=== PATIENT | male | born 2000 | race Caucasian/White ===

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

== ENCOUNTER 2021-03-15 00:03 | Emergency (ER) | payer MEDICAID ==
[2021-03-15] MEDS ORDERED: Sodium Chloride 0.9% 1,000 ML IV ONE (00:26)
[2021-03-15] MEDS ORDERED: Ondansetron 4 MG/2 ML SDV IVPUSH ONE (00:27)
[2021-03-15] MEDS ORDERED: Ketorolac 30 MG/ML SDV IVPUSH ONE (00:27)
[2021-03-15] MEDS ORDERED: predniSONE 20 MG Tab PO ONE (00:28)
--- NOTE | 2021-03-15 00:32 | EDM.PDOC ---
ED HPI GENERAL MEDICAL PROBLEM - General Stated Complaint: HEADACHE/PAIN Time Seen by Provider: 03/15/21 00:05 Source of Information: Reports: Patient, Family - History of Present Illness INITIAL COMMENTS - FREE TEXT/NARRATIVE: 20-year-old gentleman with a past medical history significant for autism spectrum disorder, attention deficit disorder, came to the emergency department with his mother for evaluation of headache and neurological symptoms that include tingling in his upper arms bilaterally and his chest. Patient was seen by his primary care physician today and diagnosed with migraine headaches. He was given sumatriptan hand. He went home and took the sumatriptan hand and shortly after began to have this sensation of tingling in his upper arms and chest. He does not have photophobia. His headache pain is mild at this time and a vague sensation of pain throughout his head. He did not have chest pain or shortness of breath. He did not take any other medications such as Tylenol or ibuprofen. States that he has had worse headaches in the past but this particular headache has been present for about 2 weeks. He denies fever, chills, change in bowel or bladder habits, and upper respiratory type symptoms. - Related Data Allergies Allergy/AdvReac Type Severity Reaction Status Date / Time grass pollen Allergy Hives Verified 10/18/18 00:02 methylphenidate Allergy Agitation Verified 12/03/20 05:58 [From Concerta] mold Allergy Rash Verified 10/18/18 00:02 Bath Beads Allergy Seizure Uncoded 10/18/18 00:02 dust Allergy Sneezing Uncoded 10/18/18 00:01 Home Meds: Home Meds Fluticasone Propionate [Flonase] 2 sprays NS DAILY 04/14/13 [History] Montelukast [Singulair] 10 mg PO BEDTIME 03/05/15 [History] Albuterol [Ventolin HFA] 1 puff INH Q4HR PRN 04/08/18 [History] Loratadine 10 mg PO DAILY 10/18/18 [History] Albuterol [Proventil Neb Soln] 2.5 mg NEB Q4H PRN #25 neb 12/03/20 [Rx] Budesonide/Formoterol [Symbicort 160-4.5 MCG] 2 puff BID 12/03/20 [History] predniSONE [Prednisone] 40 mg PO DAILY 4 Days #8 tablet 12/03/20 [Rx] traZODone 50 mg PO BEDTIME 12/03/20 [History] Past Medical History HEENT History: Reports: Otitis Media Other HEENT History: Hx thrush. Respiratory History: Reports: Asthma Psychiatric History: Reports: ADHD, Anxiety, Panic Attack, PTSD, Other (See Below) Other Psychiatric History: Asperbers syndrome Endocrine/Metabolic History: Reports: Obesity/BMI 30+ - Past Surgical History HEENT Surgical History: Reports: Adenoidectomy, Tonsillectomy Social & Family History - Family History Family Medical History: No Pertinent Family History - Caffeine Use Caffeine Use: Reports: Energy Drinks, Soda, Tea ED ROS GENERAL - Review of Systems Review Of Systems: See Below Constitutional: Reports: No Symptoms HEENT: Reports: Other (Headache, denies photophobia) Respiratory: Reports: No Symptoms Cardiovascular: Reports: No Symptoms Endocrine: Reports: No Symptoms GI/Abdominal: Reports: No Symptoms : Reports: No Symptoms Musculoskeletal: Reports: No Symptoms Skin: Reports: No Symptoms Neurological: Reports: Headache, Tingling Psychiatric: Reports: Anxiety Hematologic/Lymphatic: Reports: No Symptoms Immunologic: Reports: No Symptoms - Physical Exam Exam: See Below Exam Limited By: No Limitations General Appearance: Alert, Anxious, Mild Distress Eye Exam: Bilateral Eye: EOMI, PERRL, Other (No photophobia) Head Exam: Atraumatic, Normocephalic Neck: Normal Inspection. No: Lymphadenopathy (R), Lymphadenopathy (L) Respiratory/Chest: No Respiratory Distress, Lungs Clear, Normal Breath Sounds Cardiovascular: Normal Peripheral Pulses, Regular Rate, Rhythm, No Edema, No Murmur GI/Abdominal: Normal Bowel Sounds, Soft, Non-Tender Neuro Exam (Abbreviated): Alert, Oriented, CN II-XII Intact, Normal Cognition Back Exam: Normal Inspection. No: CVA Tenderness (R), CVA Tenderness (L) Extremities: Normal Inspection, No Pedal Edema Psychiatric: Anxious Skin Exam: Warm, Dry, Intact Departure - Departure Time of Disposition: 00:44 Disposition: Home, Self-Care 01 Clinical Impression: Migraine aura, persistent - Discharge Information *PRESCRIPTION DRUG MONITORING PROGRAM REVIEWED*: Not Applicable *COPY OF PRESCRIPTION DRUG MONITORING REPORT IN PATIENT CASSIE: Not Applicable Instructions: Chronic Migraine Headache Additional Instructions: I advised the patient and parent that he likely has a neurologic migraine. I advised him that there are medications that can be used to prevent headaches. I advised him to follow-up with her primary care physician and with neurology.
[2021-03-15] MEDS ORDERED: diphenhydrAMINE 25 MG Cap PO ONE (00:37)
[2021-03-15 01:07] VITALS: BP 147/94; PULSE 73
== END 2021-03-15 01:45 | disposition home or self-care (01) ==
LOC: FB.ED 00:03
DX: G43.509 Persistent migraine aura without cerebral infarction, not intractable, without status migrainosus (principal); J45.909 Unspecified asthma, uncomplicated; E66.9 Obesity, unspecified; Z68.38 Body mass index [BMI] 38.0-38.9, adult; Z91.048 Other nonmedicinal substance allergy status; Z88.8 Allergy status to other drugs, medicaments and biological substances; Z79.899 Other long term (current) drug therapy
CPT/HCPCS: 96374; 96375; 99283; A9270; J1885; J2405; J7030; J7512

== ENCOUNTER 2025-04-01 20:14 | Emergency (ER) | payer MEDICAID ==
[2025-04-01 21:18] VITALS: BP 152/81; PULSE 70
[2025-04-01 21:24] LABS: INFLUENZA A NAA NEGATIVE (NEGATIVE); INFLUENZA B NAA NEGATIVE (NEGATIVE); RESPIRATORY SYNCYTIAL VIR NAA NEGATIVE (NEGATIVE)
[2025-04-01 21:26] LABS: CORONAVIRUS COVID-19 NAA NEGATIVE (NEGATIVE)
== END 2025-04-01 21:30 | disposition home or self-care (01) ==
LOC: FB.ED 20:14
DX: J02.9 Acute pharyngitis, unspecified (principal); J45.901 Unspecified asthma with (acute) exacerbation; E66.9 Obesity, unspecified; Z88.8 Allergy status to other drugs, medicaments and biological substances; Z91.048 Other nonmedicinal substance allergy status; Z79.899 Other long term (current) drug therapy; Z68.41 Body mass index [BMI] 40.0-44.9, adult
CPT/HCPCS: 87637; 99283; 99284; J7512

== ENCOUNTER 2025-05-22 17:47 | Emergency (ER) | payer MEDICAID ==
[2025-05-22 18:03] VITALS: BP 150/83; PULSE 83
[2025-05-22] MEDS: Amoxicillin/Clavulanate K 875-125 MG Tab PO ONE (19:22)
== END 2025-05-22 19:28 | disposition home or self-care (01) ==
LOC: FB.ED 17:47
DX: K04.7 Periapical abscess without sinus (principal); R07.9 Chest pain, unspecified; J45.909 Unspecified asthma, uncomplicated; K21.9 Gastro-esophageal reflux disease without esophagitis; Z91.048 Other nonmedicinal substance allergy status; Z91.018 Allergy to other foods; Z79.899 Other long term (current) drug therapy
CPT/HCPCS: 36415; 71046; 85379; 93005; 99285; A9270

== ENCOUNTER 2025-05-26 02:10 | Emergency (ER) | payer MEDICAID ==
[2025-05-26] MEDS: Ketorolac 30 MG/ML SDV IM STA (03:16)
[2025-05-26 04:26] VITALS: BP 146/80; PULSE 64
== END 2025-05-26 04:15 | disposition home or self-care (01) ==
LOC: FB.ED 02:10
DX: G43.909 Migraine, unspecified, not intractable, without status migrainosus (principal); E66.9 Obesity, unspecified; J45.909 Unspecified asthma, uncomplicated; Z79.899 Other long term (current) drug therapy; Z79.51 Long term (current) use of inhaled steroids; Z88.8 Allergy status to other drugs, medicaments and biological substances; Z91.048 Other nonmedicinal substance allergy status
CPT/HCPCS: 96372; 99283; A9270-GY; J1885